=== PATIENT | female | born 1990 | race Caucasian/White ===

== ENCOUNTER 2017-07-05 04:30 | Inpatient (IN) | payer BC ==
[2017-07-05] MEDS ORDERED: LACTATED RINGERS 1,000 ML IV ONE ×2 (05:00→05:45)
[2017-07-05] MEDS ORDERED: CITRIC ACID/SODIUM CITRATE SOL PO PRN (05:57)
[2017-07-05] MEDS ORDERED: MORPHINE SULFATE 0.5 MG/ML SOL ONE (06:16)
[2017-07-05] MEDS ORDERED: LACTATED RINGERS 1,000 ML with OXYTOCIN 10000 MU/ML 20 MU IV ONE (06:44)
[2017-07-05] MEDS ORDERED: CEFAZOLIN (PREMIX) 1 GM 1 GM/50 ML SOL IV SCH ×2 (06:45→12:00)
[2017-07-05] MEDS ORDERED: CEFAZOLIN SODIUM 1 GM PDS ONE ×2 (06:47→11:59)
[2017-07-05] MEDS ORDERED: OXYTOCIN 10000 MU/ML SOL ONE (06:48)
[2017-07-05] MEDS ORDERED: DIPHENHYDRAMINE 25 MG CAP PO PRN (07:33)
[2017-07-05] MEDS ORDERED: KETOROLAC TROMETHAMINE 30 MG/ML SOL IV PRN (07:33)
[2017-07-05] MEDS ORDERED: ONDANSETRON HCL 4 MG/2 ML SOL IV PRN (07:33)
[2017-07-05] MEDS ORDERED: WITCH HAZEL 1 EA PAD TOP PRN (07:33)
[2017-07-05] MEDS ORDERED: METHYLERGONOVINE MALEATE 0.2 MG TAB PO PRN (07:33)
[2017-07-05] MEDS ORDERED: BENZOCAINE/MENTHOL 1 SPR TOP PRN (07:33)
[2017-07-05] MEDS ORDERED: TEMAZEPAM 15MG 15 MG CAP PO PRN (07:33)
[2017-07-05] MEDS ORDERED: BISACODYL 10 MG SUP PR PRN (07:33)
[2017-07-05] MEDS ORDERED: FLEET ENEMA PR PRN (07:33)
[2017-07-05] MEDS: LACTATED RINGERS 1,000 ML IV SCH ×3 (09:43→17:56)
[2017-07-05] MEDS: DOCUSATE SODIUM 100 MG SGL PO SCH ×2 (09:44→20:26)
[2017-07-05 10:47] LABS: APPEARANCE,URINE Clear; BILIRUBIN,URINE NEGATIVE (NEGATIVE); COLOR,URINE Yellow; GLUCOSE, URINE (UA) NEGATIVE (NEGATIVE); KETONES,URINE 1+ (NEGATIVE); LEUKOCYTE ESTERASE ,URINE 2+ (NEGATIVE); NITRATE,URINE NEGATIVE (NEGATIVE); OCCULT BLOOD,URINE NEGATIVE (NEG-TRACE); UROBILINOGEN,URINE 0.2 (0.2-1.0 EU)
[2017-07-05 11:14] LABS: RBC,URINE 0-2 (0-3AV/HPF)
[2017-07-05] MEDS ORDERED: CEFAZOLIN (PREMIX) 1 GM 1 GM/50 ML SOL IV ONE (12:10)
[2017-07-05] MEDS: IBUPROFEN 600 MG TAB PO PRN (20:26)
[2017-07-05] MEDS: APAP/HYDROCODONE 325/5 TAB PO PRN (22:19)
[2017-07-06] MEDS: IBUPROFEN 600 MG TAB PO PRN ×4 (02:12→21:19)
[2017-07-06] MEDS: LACTATED RINGERS 1,000 ML IV SCH ×3 (03:24→13:55)
[2017-07-06] MEDS: APAP/HYDROCODONE 325/5 TAB PO PRN (06:08)
[2017-07-06] MEDS: DOCUSATE SODIUM 100 MG SGL PO SCH ×2 (09:22→21:19)
[2017-07-06] MEDS: FERROUS SULFATE 325 MG TAB PO SCH (21:19)
[2017-07-07] MEDS: APAP/HYDROCODONE 325/5 TAB PO PRN ×2 (05:00→22:05)
[2017-07-07] MEDS: FERROUS SULFATE 325 MG TAB PO SCH ×2 (11:25→22:05)
[2017-07-07] MEDS: DOCUSATE SODIUM 100 MG SGL PO SCH ×2 (11:25→22:05)
[2017-07-07] MEDS: IBUPROFEN 600 MG TAB PO PRN (11:25)
[2017-07-08] MEDS: IBUPROFEN 600 MG TAB PO PRN (08:42)
[2017-07-08] MEDS: DOCUSATE SODIUM 100 MG SGL PO SCH (08:42)
[2017-07-08] MEDS: FERROUS SULFATE 325 MG TAB PO SCH (08:42)
[2017-07-08 15:17] VITALS: BP 114/78; PULSE 90; RESP 16; TEMP 97.6; O2SAT 99
== END 2017-07-08 14:20 | disposition home or self-care (01) | DRG 540 ==
LOC: OB 04:30
PROVIDERS: ADMIT Family Medicine; ATTEND Family Medicine
PROC: 10D00Z1 Extraction of Products of Conception, Low, Open Approach (ICD-10-PCS; principal; 2017-07-05 06:00)
DX: O44.23 Partial placenta previa NOS or without hemorrhage, third trimester (principal); O90.81 Anemia of the puerperium; Z37.0 Single live birth; Z3A.39 39 weeks gestation of pregnancy
CPT/HCPCS: 36415; 59025; 81001; 85018; 99070; J0690; J1885; J2274; J2405; J2590